=== PATIENT | male | born 1975 | race Caucasian/White ===

== ENCOUNTER 2016-10-19 14:52 | Emergency (ER) | payer BC ==
[~2016-10-19] VITALS: Ht 177.8 cm; Wt 135.0 kg
[2016-10-19 15:01] VITALS: TEMP 36.7; Ht 177.8 cm; Wt 135.0 kg
[2016-10-19 15:57] LABS: BASO % 0.4 %; BASO ABS # 0.03 K/uL (0-0.2); COMPLETE YES; EOS % 1.1 %; HEMATOCRIT 46.2 % (42-52); IG% 0.6 %; LYMPH % 22.9 %; LYMPH ABS # 1.89 K/uL (1.2-3.4); MEAN CELL VOLUME 90.9 fL (80-100); MEAN CORPUSCULAR HEMOGLOBIN 31.3 pg (25-34); MEAN CORPUSCULAR HGB CONC 34.4 g/dl (32-36); MEAN PLATELET VOLUME 10.2 fL (7.4-10.4); MONO % 8.5 %; NEUT % 66.5 %; PLATELET COUNT 200 K/uL (130-400); RED BLOOD COUNT 5.08 M/uL (4.7-6.1); WHITE BLOOD COUNT 8.26 K/uL (4.8-10.8)
[2016-10-19] MEDS ORDERED: LEVO75TA PO (16:04)
[2016-10-19] MEDS ORDERED: CEFTRIAXONE SOD INJ 1 GM ADDVIAL IV STA (16:05)
[2016-10-19 16:15] LABS: BUN/CREATININE RATIO 13.2 (10-20); CALCIUM 9.1 mg/dl (8.5-10.1); CREATININE 1.3 mg/dl (0.60-1.40); POTASSIUM 3.8 mmol/L (3.5-5.1)
[2016-10-19] MEDS ORDERED: CEPH500C PO (17:13)
[2016-10-19 17:38] VITALS: BP 145/99; PULSE 70; O2SAT 96
--- NOTE | 2016-10-21 11:45 | EMERGENCY ROOM VISIT NOTE ---
ED Visit Note First contact with patient: 15:06 Chief Complaint: Right foot pain. History of Present Illness: Mr. Juares is a 41-year-old male who ambulates into the ED accompanied by his complaining of right foot pain over the medial aspect of the right ankle. Historically patient reports he has a history of venous insufficiency and has had a open wound on the medial aspect of the right ankle for many weeks. He is seeing a specialist in [place] for his wound care. Additionally he reports last Friday, approximately 6 days ago, he had a laser procedure for his varicose veins in the right lower leg. Patient reports 4 days after his laser procedure he noted some mild increase in redness, swelling and pain in the area of his ankle ulcer. Initially it was mild and gradually increased in intensity. He describes his discomfort as an achy sensation. At rest he rates his discomfort 1/10. His pain is nonradiating. His pain worsens with palpation and ambulation. He has not identified any alleviating factors related to the pain. He has not been taken a medication for pain prior to arrival at the hospital. Associated with his pain he also reports she's been having some chills and some intermittent diaphoresis. He does express concerns with possible infection and/or pulmonary embolism. He denies jennifer fevers, upper respiratory tract symptoms, cough, wheezing, hemoptysis, shortness of breath, chest pain/discomfort, palpitations, previous clots, claudication, cramping, extended travel/inactivity, abdominal pain, nausea, vomiting, right leg weakness/numbness/tingling. Review of Systems: As noted above in history of present illness. 8 body systems were reviewed and found to be negative as noted above. Past Medical History: As noted above and hypothyroidism. Current Medications: Synthroid Allergies to Medications: Patient denies. Social History: Patient is currently employed; he feels safe in his home environment; he denies tobacco use and admits to social alcohol use. Physical Examination: Vital Signs: Date Time Temp Pulse Resp B/P Pulse Ox O2 Delivery O2 Flow Rate FiO2 10/19/16 17:38 70 18 145/99 96 10/19/16 15:01 36.7 90 16 199/105 94 Room Air GENERAL: 41-year-old male in mild distress due to pain, nontoxic-appearing, afebrile and hemodynamically stable. NEUROLOGICAL: Awake, alert and oriented to person, place and time. Answering questions appropriately and following commands. Normal gait. Good hand eye coordination. No focal motor sensory deficits. SKIN: Warm, dry and pink. Right Ankle: Over the medial malleolus patient does have a skin ulcer that measures approximately 1 cm and surrounding the ulcer is a mother 2-3 cm of erythema and mild edema. There is no lymphangitis or purulent drainage from the wound. HEENT: Atraumatic and normocephalic. THORAX: Lungs sounds are clear to auscultation and equal bilaterally with symmetrical chest wall. No wheezing, rales or rhonchi. HEART: Regular rate and rhythm. No gallops, rubs or murmurs are appreciated. ABDOMEN: Obese, soft and nontender. Positive bowel sounds in all quadrants. No guarding, rigidity or organomegaly. RIGHT LOWER EXTREMITY: No gross bony deformity. No tenderness in the hip, thigh , knee, lower leg or foot. Mild tenderness in the area of his ulcer. The skin in this area slightly warmer but not hot then the rest of the extremity. Patient does have full range of motion of flexion and extension of the knee, dorsiflexion, plantar flexion and pronation and supination of the ankle and flexion and extension of all toes. No calf swelling. I do not appreciate any calf tenderness or cords. Throughout the foot the skin was warm and pink and capillary refill is brisk. He was able to distinguish light sensations through all dermatomes. ED Course: Patient is assessed as noted above. Laboratory Testing: Test 10/19/16 15:40 Range/Units White Blood Count 8.26 4.8-10.8 K/uL Red Blood Count 5.08 4.7-6.1 M/uL Hemoglobin 15.9 14.0-18.0 g/dL Hematocrit 46.2 42-52 % Mean Corpuscular Volume 90.9 80-100 fL Mean Corpuscular Hemoglobin 31.3 25-34 pg Mean Corpuscular Hemoglobin Concent 34.4 32-36 g/dl Platelet Count 200 130-400 K/uL Mean Platelet Volume 10.2 7.4-10.4 fL Neutrophils (%) (Auto) 66.5 % Lymphocytes (%) (Auto) 22.9 % Monocytes (%) (Auto) 8.5 % Eosinophils (%) (Auto) 1.1 % Basophils (%) (Auto) 0.4 % Neutrophils # (Auto) 5.50 1.4-6.5 K/uL Lymphocytes # (Auto) 1.89 1.2-3.4 K/uL Monocytes # (Auto) 0.70 0.11-0.59 K/uL Eosinophils # (Auto) 0.09 0-0.5 K/uL Basophils # (Auto) 0.03 0-0.2 K/uL RDW Standard Deviation 41.7 36.4-46.3 fL RDW Coefficient of Variation 12.6 11.5-14.5 % Immature Granulocyte % (Auto) 0.6 % Immature Granulocyte # (Auto) 0.05 0.00-0.02 K/uL Sodium Level 143 136-145 mmol/L Potassium Level 3.8 3.5-5.1 mmol/L Chloride Level 105 98-107 mmol/L Carbon Dioxide Level 28 21-32 mmol/L Anion Gap 10.0 3-11 mmol/L Blood Urea Nitrogen 17 7-18 mg/dl Creatinine 1.30 0.60-1.40 mg/dl Est Creatinine Clear Calc Drug Dose 105.5 ml/min Estimated GFR () 79.7 Estimated GFR (Non- 68.7 BUN/Creatinine Ratio 13.2 10-20 Random Glucose 98 70-99 mg/dl Calcium Level 9.1 8.5-10.1 mg/dl Blood Cultures: Pending. Patient was offered pain medications and refused. Patient received 1 g of ceftriaxone IV for antibiotic coverage. Patient was reassessed multiple times during his stay in the emergency department. Patient's case was reviewed with Dr. Saxena; we agreed on diagnostic approach, treatment, disposition and plan Patient was educated about marcello's findings and instructed on his treatment plan; he verbalizes understanding and agreement with this plan. Clinical Impression: Wound infection. Disposition: Patient discharged home in stable condition accompanied by his ; prior to departure he was reassessed and subjectively reported he was pain and symptom-free. Plan: Patient was encouraged to use ibuprofen or acetaminophen as needed for pain. Patient was prescribed Keflex 500 mg 4 times a day for 10 days. Patient was encouraged to keep his normal wound care regimen. Patient was encouraged to follow-up with wound care and vascular surgery. Patient was encouraged return ED for worsening/uncontrolled pain, worsening redness/swelling, red streaking, fevers or any new/concerning symptoms.
== END 2016-10-19 17:39 | disposition home or self-care (01) ==
LOC: C.EDB 14:53 → C.EDD 17:39
DX: T81.4XXA Infection following a procedure, initial encounter (principal); Y84.8 Other medical procedures as the cause of abnormal reaction of the patient, or of later complication, without mention of misadventure at the time of the procedure; L98.499 Non-pressure chronic ulcer of skin of other sites with unspecified severity; E03.9 Hypothyroidism, unspecified

== ENCOUNTER → 2018-04-25 | Outpatient (CLI) | payer BC ==
[~2018-04-25] MED LIST: LEVO75TA PO
--- NOTE | 2018-04-26 06:28 | PAP/PSG TECHNICIAN REPORT ---
[facility] Insecticide Expert Polysomnogram Report Study name: None Report date: 04/26/2018 Study date: 04/25/2018 Referring Physician: Dr. Fawn Anderson Name: DOMI JUARES Interpreting Physician: Brian Dennison M.D. Date of : 1975 Insecticide Expert: Selina Block RPSGT. Sex: Male Age: 43 Study Type: PSG PAP Weight: 305 lbs 20 in Height: 43 years, Height 5' 8.5" Neck Circum: BMI: 45.7 Medications: LOSARTAN 50 MG, LEVOTHYROXINE 112 MCG, VIAGRA 50 MG Patient History 43 yr-old male here for a CPAP update study. He has been using CPAP for about six or seven years. He states that his machine is slowly breaking down and is need of a new one. He is back to assess his SHIELA and pressure settings. He wears a nasal pillows mask. Tonight, he is using a Olivo FX nasal pillows mask size large from [employer]. His [place] scale is 3. The test was started on room air and 4 CMH2O. ETCO2 testing was not utilized during this study. Room 3 Parameters Monitored NPSG: E1-M2, E2-M1, Fp1-M2, Fp2-M1, F3-M2, F4-M2, F4-M1, C3-M2, C4-M2, C4-M1, O1-M2, O2-M2, O2-M1, T3-M2, T4-M1, P3-M2, P4-M1, CHIN1, CHIN2, HR, EKG, Legs, PFLOW, SNOR, FLOW, CFLOW, Tidal Volume, THOR, ABDO, SpO2, PLTH, CPRESS, ETCO2 Wave, ETCO2, pH Sleep Architecture Sleep Stages Time at Lights Off 11:25:58 PM STAGES Time (min.) TST (%) Time at Lights On 5:30:58 AM Wake 33.0 -- Total Recording Time (TRT) 365.00 min. N1 20.0 6 Total Sleep Period (TSP) 356.0 min. N2 254.0 77 Total Sleep Time (TST) 332.0min. N3 0.0 0 Awake Time 33.0 min. REM 58.0 17 Wake after Sleep Onset 24.0 min. Sleep Efficiency (SE) 91 % Sleep Onset Latency (VENTURA) 9.0 min. Number of Stage 1 Shifts None Awakenings 16 Stage Changes 61 Number of REM periods 6 REM 58.0 17 REM Latency 102.0 min. NREM 274.0 83 Body Position Analysis Supine Right Left Side Prone Vertical Total Sleep Time (min.) 2.3 151.0 180.0 331.00 0.0 0.0 Total Sleep Time (%) 0% 45% 54% 100 0% N/A% Total Sleep Time REM (min.) 0.0 17.0 41.0 None 0.0 0.0 Total Sleep Time NREM (min.) 1.0 134.0 139.0 None 0.0 0.0 Intermittent Wake (min.) 1.3 19.2 12.5 None 0.0 0.0 Total Sleep Period (%) 0% None None None None None Arousals Myoclonus (PLM) * Events Count Index Events Count Index Spontaneous 30 5 Events Awake (PLMW) 20 36.4 Respiratory 4 0.9 Events Asleep w/ Arousal (PLMA) 0 0.0 PLM 0 0 Events Asleep w/o Arousal (PLMS) 26 4.7 Snoring 8 1 Total Asleep 26 4.7 Total 42 8 Total 46 8 Respiratory Analysis * CA OA MA CH H RERA Total Count 0 0 0 0 4 5 4 Index 0.0 0.0 0.0 0 0.7 1 1.6 Mean Duration 0.0 0.0 0.0 0.00 17.5 16.4 16.9 Longest Duration 0.0 0.0 0.0 0.00 0.0 17.5 21.0 Respiratory Event Summary Total Supine ~Supine Right Left Prone REM NREM Apneas Count 0 0 0 0 0 N/A 0 0 Index 0.0 0 0 0.0 0.0 N/A 0 0 Hypopneas (4% Desat) Count 4 0 4 1 3 N/A 2 2 Index 0.7 0.0 1 0.4 1.0 N/A 2.1 0.4 Apneas & All Hypopneas Count 4 0 4 1 3 N/A 2 2 Index 0.7 0 1 0 1 N/A 2.1 0.4 Respiratory Events (Finish Mixer+All Hyp+RERA) Count 4 0 9 2 7 N/A 2 2 Index 1.6 0 2 0.8 2.3 N/A 2.1 1.5 Respiratory Related Arousal Count 4 0 5 1 4 N/A 0 5 Index 0.9 0 1 0 1 N/A 0 1 Snoring Analysis Supine Right Left Prone REM NREM Total Snore duration 16.9 min Snores count 2 50 774 N/A 23 803 826 Snore mean duration 1.2 Sec Snores index 120 20 258 N/A 23.8 175.8 149.3 TST with snoring (%) 5.1% Desaturation Event Summary: Minimum %SpO2 Event Count Mean/Min/Max Duration(sec.) Desaturation Index % Time In Bed > 90 6 22.2 / 12.8 / 48.8 1.3 76.3 86 - 90 1 4.3 / 4.3 / 4.3 0.7 23.7 81 - 85 0 N/A 0.0 0.0 76 - 80 0 N/A 0.0 0.0 71 - 75 0 N/A 0.0 0.0 66 - 70 0 N/A 0.0 0.0 61 - 65 0 N/A 0.0 0.0 56 - 60 0 N/A 0.0 0.0 51 - 55 0 N/A 0.0 0.0 < 50 0 N/A 0.0 0.0 Total REM NREM Awake <50% 0.0 min. 0.0 min. 0.0 min. 0.0 min. 51 - 60% 0.0 min. 0.0 min. 0.0 min. 0.0 min. 61 - 70% 0.0 min. 0.0 min. 0.0 min. 0.0 min. 71 - 80% 0.0 min. 0.0 min. 0.0 min. 0.0 min. 81 - 90% 86.5 min. 9.5 min. 75.9 min. 1.1 min. 91 - 100% 278.0 min. 48.5 min. 198.1 min. 31.4 min. Average 91 91 91 92 Minimum SpO2 88 88 88 88 Desaturation Event Index 1.2 3.1 0.7 1.8 # Desat. Events below 89% 4 2 2 0 Time(%) with Saturation below 89% 0.3 0.1 0.2 0.0 Time(min.) with Saturation below 89% 1.1 0.4 0.7 0.0 Time (mins) REM (mins) NREM (mins) % of TST SpO2 Below 90% 6 3 N3 4.8 SpO2 Below 88% 1 0 0 0 Heart Rate Analysis Min (bpm) Max (bpm) Average (bpm) Awake 54 84 67 NREM 51 85 59 REM 49 84 57 Overall 49 85 59 Supplemental O2 Values Minimum O2 level: None Value Start Time End Time Insecticide Expert Comments Mr. Juares slept in the right and left positions. No cardiac arrhythmias or PLMs noted. No bruxism noted. CPAP was initiated at +4 CMH2O and up-titrated to a level of +7 CMH2O, Cflex 2 which nearly eliminated all respiratory events and snoring. A Olivo FX nasal pillows size large from [employer] was used during titration He did not wake up to use the restroom during the night. Mr. Juares stated that he slept about the same as usual. The final report will be interpreted and signed by a sleep physician. The completed physician report will then be placed in the patient medical record. CPAP REPORT Therapy Detail Time / Page # Comment CPAP 4 cm H2O Nasal Pillow Mask Flex Pressure Relief Humidifier on 11:23:41 PM / pg. 200 CPAP 5 cm H2O Nasal Pillow Mask Flex Pressure Relief Humidifier on 12:32:41 AM / pg. 338 increased for snoring CPAP 7 cm H2O Nasal Pillow Mask Flex Pressure Relief Humidifier on 1:20:32 AM / pg. 434 INCREASED FOR HYPOPNEAS AND MORE SNORING Therapy Event: Therapy (cm H20) 4 5 7 Total Time at Pressure (min.) 66.7 47.9 250.4 TST at Pressure (min.) 46.2 47.9 237.9 # Periods 1 1 1 Sleep Onset (min.) 9.0 0.0 0.0 REM Onset (min.) N/A 44.3 0.0 Sleep Efficiency % 69 100 95 Wakefulness (%) 30.7 0.0 5.0 Wakefulness (min.) 20.5 0.0 12.5 NREM 1 (%) 13.5 4.2 3.6 NREM 1 (min.) 9.0 2.0 9.0 NREM 2 (%) 55.8 88.4 69.7 NREM 2 (min.) 37.2 42.3 174.5 NREM 3 (%) 0.0 0.0 0.0 NREM 3 (min.) 0.0 0.0 0.0 REM (%) 0.0 7.5 21.7 REM (min.) 0.0 3.6 54.4 # Arousals 18 5 19 Arousal Index 23.4 6.3 4.8 # Snore 282 500 44 Snore Index 366.0 627.0 11.1 AHI 1.3 2.5 0.3 AHI Supine N/A N/A 0.0 AHI Non-Supine 1.3 2.5 0.3 NREM AHI 1.3 1.4 0.0 REM AHI N/A 16.8 1.1 RDI 6.5 3.8 0.3 # Obstructive 0 0 0 # Central Ap 0 0 0 # Mixed 0 0 0 # Hypopneas 1 2 1 RERAS 4 1 0 Total Respiratory Events 5 3 1 Time Below SpO2 89.00% (min.) 0.1 1.0 0.0 Mean NREM SpO2 (%) 91 90 91 Mean REM SpO2 (%) N/A 90 92 Mean Sleep SpO2 (%) 91 90 91 Min NREM SpO2 (%) 88 88 89 Min REM SpO2 (%) N/A 88 89 Position Supine (min.) 0.0 0.0 1.0 Position Non-supine (min.) 46.2 47.9 236.9 LM Index Sleep 3.9 7.5 4.3 LM Index NREM 3.9 8.1 4.6 LM Index REM N/A 0.0 3.3 Mean Heart Rate (bpm) 63 62 57 Min Heart Rate (bpm) 57 51 49
--- NOTE | 2018-05-04 14:13 | POLYSOMNOGRAPH REPORT ---
CLINICAL DATA: A 43-year-old male with BMI of 45.[address] Fawn Anderson for CPAP titration update study. He has been using CPAP for 6-7 years, and his machine is breaking down. He wears nasal pillows. On the evening of the study, he used Olivo FX nasal pillows, size large from [employer]. SLEEP ARCHITECTURE: Total sleep period time was 356 minutes. Total sleep time was 332 minutes divided between 274 minutes of non-REM Sleep and 58 minutes of REM sleep. Sleep latency was 9 minutes. REM latency was 102 minutes. Sleep efficiency was 91%. Wake after sleep onset was 24 minutes. Sleep consisted of stage N1 6%, stage N2 of 77%, and REM 17%. AROUSAL DATA: 42 arousals were recorded for an index of 8 per hour. PLM DATA: 26 limb movements during sleep were noted for an index of 4.7 per hour with an arousal index of 0. RESPIRATORY DATA: AHI was 0.7. There were 4 hypopneic episodes with mean duration of 17.5 seconds. OXIMETRY DATA: No significant hypoxemia was seen. Oxygen judith was 88% during REM. Mean saturation was 91%. EKG: Heart rates ranged from 49 to 85 beats per minute. No arrhythmias were noted. ONLINE MARKETING COORDINATOR'S COMMENTS: The patient slept in the right and the left positions. CPAP was titrated up to 7 cm water pressure, C-Flex setting 2. At the final pressure setting, the patient slept for 238 minutes with an AHI of 0.3. IMPRESSION: Obstructive sleep apnea/hypopnea corrected with CPAP of 7 cm water pressure, C-Flex setting 2, Olivo FX nasal pillows size large from [employer]. RECOMMENDATIONS: Patient should continue on CPAP at 7 cm water pressure, C-Flex setting 2. Follow up in 90 days to document efficacy and compliance is recommended. MTDD
== END | disposition home or self-care (01) ==
LOC: C.NEUR 21:00
PROVIDERS: ATTEND Student in an Organized Health Care Education/Training Program
DX: G47.33 Obstructive sleep apnea (adult) (pediatric) (principal)